=== PATIENT | female | born 1960 | race Caucasian/White ===

== ENCOUNTER 2016-04-03 09:41 | Inpatient (IN) | payer BC ==
[~2016-04-03] VITALS: Ht 165.1 cm; Wt 102.7 kg
[~2016-04-03 09:41] MED LIST: ATENOLOL50 MG PO; ESCITALOPRAM; PREMARIN PO; RITALIN LA10 MG PO; ULTRAM50 MG PO
[2016-04-03] MEDS ORDERED: COUMADIN 5MG5 MG/TAB PO (09:50)
[2016-04-03] MEDS ORDERED: HCTZ 25MG TAB25 MG PO (09:50)
[2016-04-03] MEDS ORDERED: ADDERALL20 MG PO (09:51)
[2016-04-03] MEDS ORDERED: COUMADIN 6MG6 MG/TAB PO (09:51)
[2016-04-03] MEDS ORDERED: LEXAPRO 10MG10 MG PO (09:52)
[2016-04-03] MEDS ORDERED: KLONOPIN 1MG1 MG PO (09:52)
[2016-04-03] MEDS ORDERED: ZOCOR 40MG40 MG PO (09:52)
[2016-04-03] MEDS ORDERED: SYNTHROID0.125 MG/T PO (09:53)
[2016-04-03] MEDS ORDERED: ULTRAM 50MG TAB50 MG PO (09:53)
[2016-04-03] MEDS ORDERED: INDERAL LA 80MG80 MG PO (09:53)
[2016-04-03 10:30] LABS: BASO # 0.1 (0.0-0.2); BASO % 0.5 % (0.0-2.0); EOS # 0.1 (0.0-0.7); EOS % 0.7 % (0-4.0); GRAN % 72.9 % (42.2-75.2); HEMATOCRIT 37.8 % (37.0-47.0); HEMOGLOBIN 12.6 g/dl (12.5-16.0); LYMPH # 1.9 (1.2-3.4); LYMPH % 17.2 % (20.0-51.0); MEAN CELL VOLUME 86 fl (80.0-100.0); MEAN CORPUSCULAR HEMOGLOBIN 29 pg (27.0-31.0); MEAN CORPUSCULAR HGB CONC 33 g/dl (33.0-37.0); MONO # 0.9 (0.1-0.6); MONO % 8.4 % (1.7-9.3); PLATELET COUNT 234 K/mm3 (130-400); RED BLOOD COUNT 4.42 M/mm3 (4.10-5.30); REDCELL DISTRIBUTION WIDTH-CV 12.8 % (11.5-14.5); WHITE BLOOD COUNT 10.9 K/mm3 (4.8-10.8)
[2016-04-03 10:36] LABS: PROTHROMBIN TIME 38.4 SECONDS (9.7-12.8)
[2016-04-03 10:38] LABS: INR 3.3 (0.8-3.0)
[2016-04-03 10:42] LABS: BILIRUBIN,TOTAL 0.9 mg/dL (0.0-1.0); CREATININE, serum 0.62 mg/dL (0.52-1.25); POTASSIUM 3.5 mmol/L (3.4-5.0)
[2016-04-03 10:55] LABS: C-REACTIVE PROTEIN 4.6 mg/dL (0.0-0.9)
[2016-04-03 11:04] LABS: PH 8 (5-8); URINE APPEARANCE Hazy; URINE BACTERIA Rare /hpf; URINE BILIRUBIN Negative (NEGATIVE); URINE BLOOD Negative (NEGATIVE); URINE COLOR Yellow; URINE GLUCOSE Negative (NEGATIVE); URINE KETONE Negative (NEGATIVE); URINE UROBILINOGEN Negative (NEGATIVE); URINE WBC 0-2 /hpf
[2016-04-03 13:37] VITALS: BP 151/79; PULSE 70; TEMP 99.1
[2016-04-03 13:57] VITALS: BP 151/79; PULSE 70; TEMP 99.1
[2016-04-03 17:23] VITALS: BP 133/82; PULSE 72; TEMP 100.1
[2016-04-03 17:25] VITALS: BP 133/82; PULSE 72; TEMP 100.1
[2016-04-03 20:53] VITALS: BP 115/55; PULSE 70; TEMP 100.4
[2016-04-03 23:54] VITALS: BP 105/83; PULSE 93; TEMP 100.1
[2016-04-04 02:36] VITALS: BP 91/42; PULSE 56; TEMP 98.2
[2016-04-04 04:44] VITALS: BP 100/57; PULSE 67; TEMP 98.2
[2016-04-04 06:48] LABS: BASO % 0.5 % (0.0-2.0); EOS # 0.1 (0.0-0.7); EOS % 1.2 % (0-4.0); GRAN # 5.2 (1.4-6.5); GRAN % 62.7 % (42.2-75.2); MEAN CELL VOLUME 88 fl (80.0-100.0); MEAN CORPUSCULAR HGB CONC 33 g/dl (33.0-37.0); MEAN PLATELET VOLUME 11.3 fl (7.4-10.4); MONO # 0.9 (0.1-0.6); MONO % 11.2 % (1.7-9.3); PLATELET COUNT 185 K/mm3 (130-400); RED BLOOD COUNT 3.56 M/mm3 (4.10-5.30); REDCELL DISTRIBUTION WIDTH-CV 12.9 % (11.5-14.5); WHITE BLOOD COUNT 8.3 K/mm3 (4.8-10.8)
[2016-04-04 06:51] LABS: HEMATOCRIT 31.2 % (37.0-47.0); HEMOGLOBIN 10.2 g/dl (12.5-16.0); MEAN CORPUSCULAR HEMOGLOBIN 29 pg (27.0-31.0)
[2016-04-04 09:30] VITALS: BP 105/51; PULSE 56; TEMP 98.2
[2016-04-04 10:31] LABS: INR 2.7 (0.8-3.0); PROTHROMBIN TIME 30.4 SECONDS (9.7-12.8)
[2016-04-04 13:22] VITALS: BP 105/88; PULSE 54; TEMP 98
[2016-04-04 17:54] VITALS: BP 107/62; PULSE 87; TEMP 99.1
[2016-04-04 21:59] VITALS: BP 123/62; PULSE 62; TEMP 98.5
[2016-04-05 05:16] VITALS: BP 107/49; PULSE 53; TEMP 99.6
[2016-04-05 07:58] LABS: HEMATOCRIT 30.8 % (37.0-47.0); HEMOGLOBIN 10.1 g/dl (12.5-16.0)
[2016-04-05 09:39] VITALS: BP 111/71; PULSE 52; TEMP 97.1
[2016-04-05 13:19] VITALS: BP 119/74; PULSE 58; TEMP 97.4
[2016-04-05 17:30] VITALS: BP 124/60; PULSE 59; TEMP 98
[2016-04-05 21:18] VITALS: BP 131/64; PULSE 81; TEMP 100.2
[2016-04-05 23:13] VITALS: TEMP 98.7
[2016-04-06 02:19] VITALS: BP 107/53; PULSE 65; TEMP 98.8
[2016-04-06 05:20] VITALS: BP 104/55; PULSE 56; TEMP 98
[2016-04-06 07:18] LABS: INR 1.7 (0.8-3.0); PROTHROMBIN TIME 19.4 SECONDS (9.7-12.8)
[2016-04-06 07:25] LABS: CALCIUM 8.8 mg/dL (8.4-10.2); CREATININE, serum 0.59 mg/dL (0.52-1.25); POTASSIUM 3.5 mmol/L (3.4-5.0)
[2016-04-06] MEDS ORDERED: CIPRO 500MG TA500 MG PO ×2 (09:40→11:56)
[2016-04-06] MEDS ORDERED: FLAGYL500 MG PO ×2 (09:41→11:56)
[2016-04-06 10:03] VITALS: BP 115/59; PULSE 54; TEMP 97.9
== END 2016-04-06 12:45 | disposition home or self-care (01) | DRG 378 ==
LOC: COL.ER 09:41 → SURG 11:37
PROVIDERS: Emergency Medicine; Internal Medicine; Nurse Practitioner; Physician Assistant
DX: K57.33 Diverticulitis of large intestine without perforation or abscess with bleeding (principal); D62 Acute posthemorrhagic anemia; I10 Essential (primary) hypertension; E03.9 Hypothyroidism, unspecified; E78.5 Hyperlipidemia, unspecified; F98.8 Other specified behavioral and emotional disorders with onset usually occurring in childhood and adolescence; J45.909 Unspecified asthma, uncomplicated; Z86.718 Personal history of other venous thrombosis and embolism; Z79.01 Long term (current) use of anticoagulants
CPT/HCPCS: 99222-AI; 99232-AI; 99233-AI; 99239; J0744; J2270; J2405; J7030; Q9967

== ENCOUNTER 2016-05-04 09:44 | Day surgery (SDC) | payer BC ==
[~2016-05-04] VITALS: Ht 160 cm; Wt 106.3 kg
[2016-05-04] VITALS (448 sets, daily range): BP systolic 120–159; BP diastolic 67–110; PULSE 45–68; TEMP 96.8–98.2; O2SAT 86–99
[~2016-05-04 09:44] MED LIST changes: +ADDERALL20 MG PO; +CIPRO 500MG TA500 MG PO; +COUMADIN 5MG5 MG/TAB PO; +COUMADIN 6MG6 MG/TAB PO; +FLAGYL500 MG PO; +HCTZ 25MG TAB25 MG PO; +INDERAL LA 80MG80 MG PO; +KLONOPIN 1MG1 MG PO; +LEXAPRO 10MG10 MG PO; +SYNTHROID0.125 MG/T PO; +ULTRAM 50MG TAB50 MG PO; +ZOCOR 40MG40 MG PO
[2016-05-04 10:33] LABS: HEMATOCRIT 37.7 % (37.0-47.0); HEMOGLOBIN 12.6 g/dl (12.5-16.0); MEAN CELL VOLUME 85 fl (80.0-100.0); MEAN CORPUSCULAR HEMOGLOBIN 28 pg (27.0-31.0); MEAN CORPUSCULAR HGB CONC 33 g/dl (33.0-37.0); MEAN PLATELET VOLUME 10.7 fl (7.4-10.4); PLATELET COUNT 255 K/mm3 (130-400); RED BLOOD COUNT 4.44 M/mm3 (4.10-5.30); REDCELL DISTRIBUTION WIDTH-CV 12.9 % (11.5-14.5); WHITE BLOOD COUNT 6.2 K/mm3 (4.8-10.8)
[2016-05-04 10:34] LABS: INR 1.9 (0.8-3.0); PROTHROMBIN TIME 21.3 SECONDS (9.7-12.8)
[2016-05-04 11:01] LABS: CALCIUM 10.1 mg/dL (8.4-10.2); CREATININE, serum 0.59 mg/dL (0.52-1.25); POTASSIUM 3.9 mmol/L (3.4-5.0)
[2016-05-04] MEDS ORDERED: ADVIL200 MG PO (11:25)
[2016-05-05] VITALS (281 sets, daily range): BP systolic 120–148; BP diastolic 70–83; PULSE 57–64; TEMP 97.6–98; O2SAT 87–100
[2016-05-05 06:25] LABS: BASO % 0.5 % (0.0-2.0); EOS # 0.2 (0.0-0.7); EOS % 2.9 % (0-4.0); GRAN # 3.3 (1.4-6.5); LYMPH # 1.9 (1.2-3.4); LYMPH % 31.9 % (20.0-51.0); MEAN CELL VOLUME 85 fl (80.0-100.0); MEAN CORPUSCULAR HGB CONC 33 g/dl (33.0-37.0); MEAN PLATELET VOLUME 10.4 fl (7.4-10.4); MONO # 0.5 (0.1-0.6); MONO % 8.4 % (1.7-9.3); PLATELET COUNT 224 K/mm3 (130-400); RED BLOOD COUNT 4.06 M/mm3 (4.10-5.30); REDCELL DISTRIBUTION WIDTH-CV 12.7 % (11.5-14.5); WHITE BLOOD COUNT 5.9 K/mm3 (4.8-10.8)
[2016-05-05 06:29] LABS: HEMATOCRIT 34.5 % (37.0-47.0); HEMOGLOBIN 11.4 g/dl (12.5-16.0); MEAN CORPUSCULAR HEMOGLOBIN 28 pg (27.0-31.0)
[2016-05-05 06:44] LABS: CALCIUM 8.9 mg/dL (8.4-10.2); CREATININE, serum 0.56 mg/dL (0.52-1.25); POTASSIUM 3.5 mmol/L (3.4-5.0)
[2016-05-05] MEDS ORDERED: ASPIRIN 81M81 MG/TA2 PO (08:41)
[2016-05-05] MEDS ORDERED: PLAVIX 75MG TAB75 MG PO (08:42)
[2016-05-05] MEDS ORDERED: LIPITOR 80MG80 MG PO (08:43)
[2016-05-05] MEDS ORDERED: NITROSTAT0.4 MG/TAB SL (08:44)
== END 2016-05-05 09:18 | disposition home or self-care (01) ==
LOC: EUO 09:44 → COL.RAD 10:00 → ICU 12:44 → IMCU 17:52 → EUO 05-05 09:18
PROVIDERS: Internal Medicine Interventional Cardiology
DX: I25.10 Atherosclerotic heart disease of native coronary artery without angina pectoris (principal); R94.39 Abnormal result of other cardiovascular function study; R07.9 Chest pain, unspecified; I10 Essential (primary) hypertension; E78.5 Hyperlipidemia, unspecified; R60.0 Localized edema; R51 Headache; E03.9 Hypothyroidism, unspecified; Z86.711 Personal history of pulmonary embolism; Z79.01 Long term (current) use of anticoagulants; Z79.899 Other long term (current) drug therapy
CPT/HCPCS: OP; C1725; C1769; C1874; C1887; C1894; C9600; J0583; J2250; J3010; Q9967

== ENCOUNTER → 2016-12-11 | Outpatient (CLI) | payer BC ==
[~2016-12-11] MED LIST changes: +ADVIL200 MG PO; +ASPIRIN 81M81 MG/TA2 PO; +LIPITOR 80MG80 MG PO; +NITROSTAT0.4 MG/TAB SL; +PLAVIX 75MG TAB75 MG PO
== END ==
LOC: MC.RAD 10:20
DX: Z12.31 Encounter for screening mammogram for malignant neoplasm of breast (principal)

== ENCOUNTER → 2017-09-17 | Outpatient (CLI) | payer BC | LOC: COL.RAD 12:48 | DX: K57.32 Diverticulitis of large intestine without perforation or abscess without bleeding (principal); K76.89 Other specified diseases of liver; Z90.710 Acquired absence of both cervix and uterus | CPT/HCPCS: Q9967 ==

== ENCOUNTER 2018-11-09 18:56 | Emergency (ER) | payer BC ==
[~2018-11-09] VITALS: Ht 160 cm; Wt 104.5 kg
[2018-11-09 19:08] VITALS: TEMP 99.7
[2018-11-09 19:45] LABS: BASO % 0.3 % (0.0-2.0); EOS # 0.2 (0.0-0.7); EOS % 1.9 % (0-4.0); GRAN # 9.9 (1.4-6.5); GRAN % 81.7 % (42.2-75.2); HEMATOCRIT 38.6 % (37.0-47.0); LYMPH # 1.2 (1.2-3.4); LYMPH % 10.1 % (20.0-51.0); MEAN CELL VOLUME 83 fl (80.0-100.0); MEAN CORPUSCULAR HEMOGLOBIN 28 pg (27.0-31.0); MEAN CORPUSCULAR HGB CONC 34 g/dl (33.0-37.0); MEAN PLATELET VOLUME 10.2 fl (7.4-10.4); MONO # 0.7 (0.1-0.6); MONO % 5.8 % (1.7-9.3); PLATELET COUNT 233 K/mm3 (130-400); RED BLOOD COUNT 4.64 M/mm3 (4.10-5.30); REDCELL DISTRIBUTION WIDTH-CV 12.8 % (11.5-14.5)
[2018-11-09 19:53] LABS: INR 3.5 (0.8-3.0)
[2018-11-09 19:56] LABS: ALANINE AMINOTRANSFERASE 16 U/L (9-52); ALBUMIN 4.4 gm/dL (3.5-5.0); ALKALINE PHOSPHATASE 102 U/L (50-136); ANION GAP 8 mmol/L (7-16); AST,SGOT 36 U/L (15-37); BILIRUBIN,TOTAL 0.9 mg/dL (0.0-1.0); BLOOD UREA NITROGEN 21 mg/dL (7-17); CALCIUM 9.4 mg/dL (8.4-10.2); CARBON DIOXIDE 29 mmol/L (22-30); CHLORIDE 98 mmol/L (98-107); CREATININE, serum 0.54 (0.52-1.25); GLUCOSE 123 mg/dL (74-106); POTASSIUM 4.2 mmol/L (3.4-5.0); SODIUM 135 mmol/L (137-145); TOTAL PROTEIN 7.6 gm/dL (6.4-8.2)
[2018-11-09 20:14] LABS: TROPONIN-I < 0.012 ng/mL (0.000-0.035)
[2018-11-09 20:17] LABS: COLLECTION METHOD CLEAN CATCH
[2018-11-09 20:24] LABS: MUCOUS Present /lpf; PH 7 (5-8); SQUAMOUS EPITHELIAL 0-2 /hpf; URINE APPEARANCE Hazy; URINE BACTERIA None Seen /hpf; URINE BILIRUBIN Negative (NEGATIVE); URINE BLOOD Negative (NEGATIVE); URINE COLOR Yellow; URINE GLUCOSE Negative (NEGATIVE); URINE KETONE Negative (NEGATIVE); URINE LEUKOCYTE ESTERASE Negative (NEGATIVE); URINE NITRATE Negative (NEGATIVE); URINE PROTEIN(semi-quant) Negative (NEGATIVE); URINE UROBILINOGEN Negative (NEGATIVE)
[2018-11-09 20:37] LABS: STREP SCREEN NEGATIVE
[2018-11-09] MEDS ORDERED: CEPHALEXIN500 M1 PO (20:57)
[2018-11-09 21:13] VITALS: BP 133/68; PULSE 70
== END 2018-11-09 21:17 | disposition home or self-care (01) ==
LOC: COL.ER 18:56
PROVIDERS: Emergency Medicine
DX: J02.9 Acute pharyngitis, unspecified (principal); R53.1 Weakness; I25.10 Atherosclerotic heart disease of native coronary artery without angina pectoris; I10 Essential (primary) hypertension; Z79.01 Long term (current) use of anticoagulants; Z79.02 Long term (current) use of antithrombotics/antiplatelets; Z79.82 Long term (current) use of aspirin; Z79.891 Long term (current) use of opiate analgesic; Z86.711 Personal history of pulmonary embolism
CPT/HCPCS: J7030

== ENCOUNTER 2021-05-11 06:15 | Emergency (ER) | payer OTHER ==
[~2021-05-11] VITALS: Ht 157.5 cm; Wt 111.4 kg
[~2021-05-11 06:15] MED LIST changes: +CEPHALEXIN500 M1 PO
[2021-05-11 06:23] VITALS: TEMP 98.1
[2021-05-11 07:45] VITALS: BP 140/61; PULSE 80
== END 2021-05-11 07:50 | disposition home or self-care (01) ==
LOC: COL.ER 06:15
DX: S69.91XA Unspecified injury of right wrist, hand and finger(s), initial encounter (principal); Z79.02 Long term (current) use of antithrombotics/antiplatelets; W18.30XA Fall on same level, unspecified, initial encounter; Y92.009 Unspecified place in unspecified non-institutional (private) residence as the place of occurrence of the external cause

== ENCOUNTER → 2023-06-12 | Outpatient (CLI) | payer MEDICARE, OTHER | LOC: MC.RAD 13:27 | DX: Z12.31 Encounter for screening mammogram for malignant neoplasm of breast (principal); Z00.00 Encounter for general adult medical examination without abnormal findings ==